=== PATIENT | male | born 1945 | race Caucasian/White ===

== ENCOUNTER 2018-06-13 15:20 | Emergency (ER) | payer MEDICARE ==
[2018-06-13 16:28] LABS: BASOPHILS % (AUTO) 0.9 % (0.0-5.0); EOSINOPHILS % (AUTO) 2.1 % (0.0-8.0); HEMATOCRIT 44.8 % (42-54); LYMPHOCYTES % (AUTO) 14.7 % (21.0-51.0); MEAN CORPUSCULAR HEMOGLOBIN 30.3 pg (27.0-33.0); MEAN CORPUSCULAR VOLUME 89.2 fL (79-99); MONOCYTES % (AUTO) 6.3 % (3.0-13.0); NUCLEATED RED BLOOD CELLS 0.1 % (0.0-0.19); PLATELET COUNT (AUTO) 172 K/uL (130-400); RED BLOOD CELL COUNT(AUTO) 5.02 MIL/uL (4.50-6.20); RED CELL DISTRIBUTION WIDTH 14.4 % (11.0-15.5); WHITE BLOOD COUNT (AUTO) 13.1 K/uL (4.8-10.8)
[2018-06-13 16:40] LABS: CREATININE 1.2 mg/dL (0.5-1.5)
[2018-06-13 16:51] LABS: B-TYPE NATRIURETIC PEPTIDE 22 pg/mL (0-100)
== END 2018-06-13 19:11 | disposition home or self-care (01) ==
LOC: EDH 15:20
DX: J15.9 Unspecified bacterial pneumonia (principal); I25.2 Old myocardial infarction; Z85.46 Personal history of malignant neoplasm of prostate; Z90.49 Acquired absence of other specified parts of digestive tract; Z98.890 Other specified postprocedural states; Z87.891 Personal history of nicotine dependence
CPT/HCPCS: 36415; 71046; 71250; 80048; 83880; 84484; 85025; 93005